=== PATIENT | male | born 1950 | race Caucasian/White ===

== ENCOUNTER → 2018-04-18 11:23 | Outpatient (CLI) | payer MEDICARE, OTHER, SELFPAY ==
[2015-04-20 06:42] VITALS: BMI 33.5
--- NOTE | 2018-04-18 11:34 | RAD_ITS ---
STUDY: X-RAY CHEST REASON FOR EXAM: Male, 68 years old. 10 day history of cough and chest tightness. TECHNIQUE: PA and lateral views of the chest. COMPARISON: None. FINDINGS: Minimal increased markings at the lung bases suggestive of mild scarring. There is no demonstrated pleural abnormality. Normal size heart. Normal mediastinum and donato. Normal visualized pulmonary arteries. There is atherosclerotic calcification of the aortic arch with tortuosity. There are diffuse degenerative changes of the visualized thoracic spine. Normal visualized ribs, clavicles, and shoulders. There is no demonstrated abnormality of the visualized soft tissue structures of the upper abdomen. RAD/Chest PA and Lateral IMPRESSION: Mild degree of increase in markings at the lung bases suggestive of mild scarring. Electronically Signed: Amarjit Wyman MD at 10:13 EST Tel [phone], Service support ,
--- OUTSIDE RECORDS SUMMARY | 2018-06-23 03:06 | XMS RPT_ITS ---
:1950 Author Organization OHIP Support Name Relationship Address Phone SYMONE MCWILLIAMS Unavailable [address] + [place] [address] SYMONE MCWILLIAMS Unavailable [address] + [place] [address] R Unavailable Unavailable Unavailable SYMONE MCWILLIAMS Unavailable [address] [facility] [address] + [place] [address] OJ SYMONE Unavailable [address] + [place] [address] OJ SYMONE Unavailable [address] + [place] [address] OJSYMONE Unavailable [address] + [place] [address] OJ SYMONE Unavailable [address] + [place] [address] OJSYMONE Unavailable [address] + [place] [address] SYMONE MCWILLIAMS Unavailable [address] + [place] [address] OJ SYMONE Unavailable [address] + [place] [address] OJ SMYONE Unavailable [address] + [place] [address] OJ SYMONE Unavailable [address] + [place] [address] OJ SYMONE Unavailable [address] + [place] [address] SYMONE MCWILLIAMS Unavailable [address] + [place] [address] SYMONE MCWILLIAMS Unavailable [address] + [place] [address] SYMONE MCWILLIAMS Unavailable [address] + [place] [address] SYMONE MCWILLIAMS Unavailable [address] + [place] [address] SYMONE MCWILLIAMS Unavailable [address] + [place] [address] VENUS MCWILLIAMSAN Unavailable [address] + [place] [address] SYMONE MCWILLIAMS Unavailable [address] + [place] [address] SYMONE MCWILLIAMS Unavailable [address] + [place] [address] Care Team Providers Name Role Phone ROSAURA AYALA MD Attending Unavailable ROSAURA AYALA MD Primary Care Unavailable ROSAURA AYALA MD Attending Unavailable ROSAURA AYALA MD Primary Care Unavailable PERFECTO DEVINE MD, JR. Attending Unavailable ROSAURA AYALA MD Primary Care Unavailable CJ CHIN MD Attending Unavailable ROSAURA AYALA MD Primary Care Unavailable CJ CHIN MD Attending Unavailable ROSAURA AYALA MD Primary Care Unavailable CJ CHIN MD Attending Unavailable CJ CHIN MD Primary Care Unavailable HAYDEN MOYER MD Attending Unavailable CJ CHIN MD Primary Care Unavailable PERFECTO DEVINE MD, JR. Attending Unavailable PERFECTO DEVINE MD, JR. Referring Unavailable CJ CHIN MD Primary Care Unavailable PERFECTO DEVINE MD, JR. Attending Unavailable CJ CHIN MD Primary Care Unavailable CJ CHIN MD Attending Unavailable CJ CHIN MD Primary Care Unavailable Bandar De Jesus Attending Unavailable Bandar De Jesus Referring Unavailable CJ CHIN Primary Care Unavailable PROBLEMS PROBLEMS DATE TYPE CONDITION / CODE ATTENDING STATUS SOURCE 11/14/2017 Admitting Type 1 diabetes ELSY BAHENA, Active [facility] Diagnosis mellitus with other [facility] specified Repository complication / E10.69(ICD-10) 07/10/2017 Admitting Encounter for LUCY BAHENA, Active [facility] Diagnosis screening for other [facility] viral diseases / Repository Z11.59(ICD-10) 07/10/2017 Admitting Mixed hyperlipidemia LUCY BAHENA, Active [facility] Diagnosis / E78.2(ICD-10) [facility] Repository 07/10/2017 Admitting Essential (primary) LUCY BAHENA, Active [facility] Diagnosis hypertension / [facility] I10(ICD-10) Repository 07/10/2017 Admitting Type 2 diabetes LUCY BAHENA, Active [facility] Diagnosis mellitus without [facility] complications / Repository E11.9(ICD-10) PROCEDURES PROCEDURES No Procedure Records FoundRESULTS RESULTS VL CAROTID BILATERAL Observed: 04/26/2018 Status: F Source: [facility] DUPLEX 8:39 AM [facility] REPOSITORY ORIGINAL Carotid duplex examination using B-mode, color flow and spectral Doppler CLINICAL STATEMENT: syncope. COMPARISON: None FINDINGS: RIGHT SIDE: There is calcified atherosclerosis at the carotid bifurcation. Maximum morphologic ICA stenosis is 40 %. CCA PSV: 98 cm/s ICA PSV: 104 cm/s ICA/CCA ratio: 1.06 ECA PSV: 164 cm/s Vertebral artery: Antegrade Subclavian artery: Antegrade LEFT SIDE: There is calcified atherosclerosis at the carotid bifurcation. Maximum morphologic ICA stenosis is 23%. CCA PSV: 96 cm/s ICA PSV: 84 cm/s ICA/CCA ratio: 0.87 ECA PSV: 176 cm/s Vertebral artery: Antegrade Subclavian artery: Antegrade IMPRESSION: Moderate bilateral carotid atherosclerotic disease. There is no ICA stenosis of greater than 50% on either side. I have personally reviewed the images of this examination and agree with the resident's findings and interpretation. Interpreted By: Timothy Tinoco MD Preliminary Report By: Alma Scott DO Electronically Signed By: Timothy Tinoco MD Dictated Date: 04/26/2018 4:45:31 PM Prelim Date: 04/26/2018 4:51:12 PM Sign Date: 04/26/2018 5:05:15 PM CHEST PA AND LATERAL Observed: 04/18/2018 Status: F Source: LISA 11:34 AM [facility] REPOSITORY [facility] Imaging Services [address] [place] [address] Chest PA and Lateral MR#: [id number] Acct: [id number] Name: DONNA MCWILLIAMS Rep #: [id number] : 1950 M 68 From: Amarjit Wyman MD PCP: Cj Chin MD Status: REG CLI Study: Chest PA and Lateral Date of Exam: 04/18/18 Exam# [id number] Ordering Dr: Bandar De Jesus MD STUDY: X-RAY CHEST REASON FOR EXAM: Male, 68 years old. 10 day history of cough and chest tightness. TECHNIQUE: PA and lateral views of the chest. COMPARISON: None. FINDINGS: Minimal increased markings at the lung bases suggestive of mild scarring. There is no demonstrated pleural abnormality. Normal size heart. Normal mediastinum and donato. Normal visualized pulmonary arteries. There is atherosclerotic calcification of the aortic arch with tortuosity. There are diffuse degenerative changes of the visualized thoracic spine. Normal visualized ribs, clavicles, and shoulders. There is no demonstrated abnormality of the visualized soft tissue structures of the upper abdomen. RAD/Chest PA and Lateral IMPRESSION: Mild degree of increase in markings at the lung bases suggestive of mild scarring. Electronically Signed: Amarjit Wyman MD at 10:13 EST Tel [phone], Service support , CC: Valdez De Jesus MD; Cj Chin MD Education General Manager: Signed Observed: 04/18/2018 Status: F Source: [place] CULTURE, THROAT 11:15 AM [facility] REPOSITORY Culture, Throat Normal throat lucas isolated. No beta-hemolytic streptococcus isolated. Performed By: #### M100.1000 #### [facility] [place], [address] XR SPINE CERVICAL W/ Observed: 04/10/2018 Status: F Source: [facility] FLEXT/EXT 6 + VIEWS 8:38 AM [facility] REPOSIT[facility] ORIGINAL Cervical spine 8 views including lateral flexion and extension views HISTORY: Neck pain COMPARISON: None The neutral lateral view shows normal vertebral body height and alignment. Flexion and extension views show no abnormal motion. There is mild to moderate degenerative disc disease inferiorly with promin ent anterior annular calcification and spurring at the lower cervical levels. Mild facet degenerative changes are present. There is mild narrowing of the RIGHT C5-C6 neural foramen. The C1-C2 relationsh ip and the prevertebral soft tissues are unremarkable. IMPRESSION: Inferior degenerative changes, no acute finding. Interpreted By: Magen Segura MD Preliminary Report By: Magen Segura MD Electronically Signed By: Magen Segura MD Dictated Date: 04/10/2018 9:09:33 AM Prelim Date: 04/10/2018 9:09:33 AM Sign Date: 04/10/2018 9:10:22 AM PSA Collected: 04/09/2018 Status: F Source: [facility] 2:15 PM [facility] REPOSITORY TYPE CODE TESTS RESULT OUT OF REFERENCE UNITS RANGE LAB PSA(LOINC) 0.00-4.00 ng/mL Prostate 2.02 Specific Antigen Performed By: #### PSA #### [place] [address] CMP Collected: 02/06/2018 Status: F Source: [facility] 9:35 AM [facility] REPOSITORY TYPE CODE TESTS RESULT OUT OF REFERENCE UNITS RANGE LAB GLU(LOINC) 80-115 mg/dL Glucose Level 112 LAB NA(LOINC) 136-145 mmol/L Sodium Level 141 LAB K(LOINC) 3.5-5.1 mmol/L Potassium Level 4.7 LAB CL(LOINC) 98-107 mmol/L Chloride 103 LAB CO2(LOINC) 23-31 mmol/L CO2 25 LAB EBAL(LOINC mEq/L ) Electrolyte Balance 13.0 LAB BUN(LOINC) 7-18 mg/dL BUN High 24 LAB CRE(LOINC) 0.70-1.30 mg/dL Creatinine Lvl (s) 0.86 LAB BC(LOINC) 7-27 ratio High BUN/Creatinine 28 Ratio LAB CA(LOINC) 8.4-10.2 mg/dL Calcium Lvl 9.1 LAB PROT(LOINC 6.4-8.2 G/dL ) Total Protein 6.7 LAB ALB(LOINC) 3.4-4.8 G/dL Albumin Level 3.9 LAB GLB(LOINC) G/dL Globulin 2.8 LAB AG(LOINC) 1.1-2.5 ratio A/G Ratio 1.4 LAB BILT(LOINC 0.2-1.0 mg/dL ) Bili Total 0.4 LAB AP(LOINC) 40-135 U/L Alk Phos 97 LAB AST(LOINC) 10-40 U/L AST/SGOT 33 LAB ALT(LOINC) 10-35 U/L ALT/SGPT High 61 Performed By: #### CMP, LIPID, GFR #### [place] [address] LIPID Collected: 02/06/2018 Status: F Source: [employer] 9:35 AM [facility] REPOSITORY TYPE CODE TESTS RESULT OUT OF REFERENCE UNITS RANGE LAB CHOL(LOINC 0-200 mg/dL ) Cholesterol 176 Result Comment: Cholesterol Reference Interval: Less than 200 Desirable 200-239 Borderline high risk 240 and above High risk LAB TRIG(LOINC) 0-150 mg/dL Triglycerides High 259 Result Comment: Triglyceride Reference Interval: Less than 150 Normal 150-199 Borderline high risk 200-499 High risk 500 or higher Very high risk LAB HD(LOINC) 40-60 mg/dL HDL Low Cholesterol 36 LAB LDL(LOINC) 0-130 mg/dL LDL Cholesterol 88 Performed By: #### CMP, LIPID, GFR #### [place] [address] .GFR Collected: 02/06/2018 Status: F Source: [employer] 9:35 AM [facility] REPOSITORY TYPE CODE TESTS RESULT OUT OF REFERENCE UNITS RANGE LAB GFRAA(LOINC ml/min/1.73 ) sqm GFR 108 [place] Result Comment: GFR Population mean for , Non- Americans Ages 20-29 = 116 mL/min/1.73 sq.m. Ages 30-39 = 107 mL/min/1.73 sq.m. Ages 40-49 = 99 mL/min/1.73 sq.m. Ages 50-59 = 93 mL/min/1.73 sq.m. Ages 60-69 = 85 mL/min/1.73 sq.m. Ages 70+ = 75 mL/min/1.73 sq.m. Chronic Kidney Disease: Less than 60 mL/min/1.73 square meters End Stage Renal Disease: Less than 15 mL/min/1.73 square meters LAB GFRNO(LOINC) ml/min/1.73sqm GFR Non- 89 Result Comment: GFR Population mean for , Non- Americans Ages 20-29 = 116 mL/min/1.73 sq.m. Ages 30-39 = 107 mL/min/1.73 sq.m. Ages 40-49 = 99 mL/min/1.73 sq.m. Ages 50-59 = 93 mL/min/1.73 sq.m. Ages 60-69 = 85 mL/min/1.73 sq.m. Ages 70+ = 75 mL/min/1.73 sq.m. Chronic Kidney Disease: Less than 60 mL/min/1.73 square meters End Stage Renal Disease: Less than 15 mL/min/1.73 square meters Performed By: #### CMP, LIPID, GFR #### [place] [address] CMP Collected: 11/19/2017 Status: F Source: [facility] 11:05 AM [facility] REPOS[facility] TYPE CODE TESTS RESULT OUT OF REFERENCE UNITS RANGE LAB GLU(LOINC) 80-115 mg/dL Glucose High Level 143 LAB NA(LOINC) 136-145 mmol/L Sodium Level 141 LAB K(LOINC) 3.5-5.1 mmol/L Potassium Level 4.6 LAB CL(LOINC) 98-107 mmol/L Chloride 104 LAB CO2(LOINC) 23-31 mmol/L CO2 29 LAB EBAL(LOINC mEq/L ) Electrolyte Balance 8.0 LAB BUN(LOINC) 7-18 mg/dL BUN High 20 LAB CRE(LOINC) 0.70-1.30 mg/dL Creatinine Lvl (s) 0.95 LAB BC(LOINC) 7-27 ratio BUN/Creatinine 21 Ratio LAB CA(LOINC) 8.4-10.2 mg/dL Calcium Lvl 9.7 LAB PROT(LOINC 6.4-8.2 G/dL ) Total Protein 7.1 LAB ALB(LOINC) 3.4-4.8 G/dL Albumin Level 4.0 LAB GLB(LOINC) G/dL Globulin 3.1 LAB AG(LOINC) 1.1-2.5 ratio A/G Ratio 1.3 LAB BILT(LOINC 0.2-1.0 mg/dL ) Bili Total 0.4 LAB AP(LOINC) 40-135 U/L Alk Phos 116 LAB AST(LOINC) 10-40 U/L AST/SGOT 30 LAB ALT(LOINC) 10-35 U/L ALT/SGPT High 72 Performed By: #### CMP, GFR #### [address] [address] .GFR Collected: 11/19/2017 Status: F Source: [facility] 11:05 AM [facility] REPOSITORY TYPE CODE TESTS RESULT OUT OF REFERENCE UNITS RANGE LAB GFRAA(LOINC ml/min/1.73 ) sqm GFR 96 [place] Result Comment: GFR Population mean for , Non- Americans Ages 20-29 = 116 mL/min/1.73 sq.m. Ages 30-39 = 107 mL/min/1.73 sq.m. Ages 40-49 = 99 mL/min/1.73 sq.m. Ages 50-59 = 93 mL/min/1.73 sq.m. Ages 60-69 = 85 mL/min/1.73 sq.m. Ages 70+ = 75 mL/min/1.73 sq.m. Chronic Kidney Disease: Less than 60 mL/min/1.73 square meters End Stage Renal Disease: Less than 15 mL/min/1.73 square meters LAB GFRNO(LOINC) ml/min/1.73sqm GFR Non- 79 Result Comment: GFR Population mean for , Non- Americans Ages 20-29 = 116 mL/min/1.73 sq.m. Ages 30-39 = 107 mL/min/1.73 sq.m. Ages 40-49 = 99 mL/min/1.73 sq.m. Ages 50-59 = 93 mL/min/1.73 sq.m. Ages 60-69 = 85 mL/min/1.73 sq.m. Ages 70+ = 75 mL/min/1.73 sq.m. Chronic Kidney Disease: Less than 60 mL/min/1.73 square meters End Stage Renal Disease: Less than 15 mL/min/1.73 square meters Performed By: #### CMP, GFR #### [address] [address] LIPID Collected: 11/14/2017 Status: F Source: [facility] 8:11 AM [facility] REPOSITORY TYPE CODE TESTS RESULT OUT OF REFERENCE UNITS RANGE LAB CHOL(LOINC 0-200 mg/dL ) Cholesterol High 207 Result Comment: Cholesterol Reference Interval: Less than 200 Desirable 200-239 Borderline high risk 240 and above High risk LAB TRIG(LOINC) 0-150 mg/dL Triglycerides High 303 Result Comment: Triglyceride Reference Interval: Less than 150 Normal 150-199 Borderline high risk 200-499 High risk 500 or higher Very high risk LAB HD(LOINC) 40-60 mg/dL HDL Low Cholesterol 36 LAB LDL(LOINC) 0-130 mg/dL LDL Cholesterol 110 Performed By: #### LIPID #### [facility] [address] [place] [address] BUN Collected: 08/22/2017 Status: F Source: [employer] [facility] 11:01 AM [facility] REPOSITORY TYPE CODE TESTS RESULT OUT OF RANGE REFERENCE UNITS LAB BUN(LOINC) 7.0-18.0 mg/dL High BUN 19.7 Performed By: #### BUN, CRE, GFR #### [address] [address] CRE Collected: 08/22/2017 Status: F Source: [facility] 11:01 AM [facility] REPOSITORY TYPE CODE TESTS RESULT OUT OF REFERENCE UNITS RANGE LAB CRE(LOINC) 0.6-1.2 mg/dL Creatinine Lvl 0.8 (s) Performed By: #### BUN, CRE, GFR #### [address] [address] .GFR Collected: 08/22/2017 Status: F Source: [facility] 11:01 AM [facility] REPOSITORY TYPE CODE TESTS RESULT OUT OF REFERENCE UNITS RANGE LAB GFRAA(LOINC ml/min/1.73 ) sqm GFR 124 [place] Result Comment: GFR Population mean for , Non- Americans Ages 20-29 = 116 mL/min/1.73 sq.m. Ages 30-39 = 107 mL/min/1.73 sq.m. Ages 40-49 = 99 mL/min/1.73 sq.m. Ages 50-59 = 93 mL/min/1.73 sq.m. Ages 60-69 = 85 mL/min/1.73 sq.m. Ages 70+ = 75 mL/min/1.73 sq.m. Chronic Kidney Disease: Less than 60 mL/min/1.73 square meters End Stage Renal Disease: Less than 15 mL/min/1.73 square meters LAB GFRNO(LOINC) ml/min/1.73sqm GFR Non- >60 Result Comment: GFR Population mean for , Non- Americans Ages 20-29 = 116 mL/min/1.73 sq.m. Ages 30-39 = 107 mL/min/1.73 sq.m. Ages 40-49 = 99 mL/min/1.73 sq.m. Ages 50-59 = 93 mL/min/1.73 sq.m. Ages 60-69 = 85 mL/min/1.73 sq.m. Ages 70+ = 75 mL/min/1.73 sq.m. Chronic Kidney Disease: Less than 60 mL/min/1.73 square meters End Stage Renal Disease: Less than 15 mL/min/1.73 square meters Performed By: #### BUN, CRE, GFR #### [address] [address] LIPID Collected: 07/10/2017 Status: F Source: [facility] 11:00 AM [facility] REPOS[facility] TYPE CODE TESTS RESULT OUT OF REFERENCE UNITS RANGE LAB CHOL(LOINC 131-200 mg/dL ) Cholesterol High 204 Result Comment: Cholesterol Reference Interval: Less than 200 Desirable 200-239 Borderline high risk 240 and above High risk LAB TRIG(LOINC) 40-150 mg/dL Triglycerides High 355 Result Comment: Triglyceride Reference Interval: Less than 150 Normal 150-199 Borderline high risk 200-499 High risk 500 or higher Very high risk LAB HD(LOINC) 35-90 mg/dL HDL Cholesterol 38 Result Comment: HDL Reference Interval: Less than 40 Low - high risk 60 or above Optimal/lowers risk LAB LDL(LOINC) 0-130 mg/dL LDL Cholesterol 95 Result Comment: LDL is a calculated result and requires a 12-hr fast. LDL Reference Interval: Less than 100 Optimal 100-129 Near or above optimal 130-159 Borderline high risk 160-189 High risk 190 and above Very high risk Performed By: #### LIPID, CMP, GFR #### [place] [address] [address] #### HCV1 #### [address] [address] CMP Collected: 07/10/2017 Status: F Source: [facility] 11:00 AM [facility] REPOSITORY TYPE CODE TESTS RESULT OUT OF REFERENCE UNITS RANGE LAB 1547-9 80-115 mg/dL GLUCOSE 111 LAB NA(LOINC) 136-146 mEq/L Sodium Level 140 LAB K(LOINC) 3.5-5.1 mEq/L Potassium Level 4.5 LAB CL(LOINC) 98-107 mEq/L Chloride 101 LAB CO2(LOINC) 23-31 mEq/L CO2 26 LAB EBAL(LOINC mEq/L ) Electrolyte Balance 13.0 LAB BUN(LOINC) 7.0-18.0 mg/dL BUN High 24.5 LAB CRE(LOINC) 0.6-1.2 mg/dL Creatinine Lvl (s) 0.9 LAB BC(LOINC) 7-27 ratio BUN/Creatinine 27 Ratio LAB CA(LOINC) 8.4-10.2 mg/dL Calcium Lvl 9.4 LAB PROT(LOINC 6.0-8.3 G/dL ) Total Protein 6.9 LAB ALB(LOINC) 3.4-4.8 G/dL Albumin Level 4.4 LAB GLB(LOINC) G/dL Globulin 2.5 LAB AG(LOINC) 1.1-2.5 ratio A/G Ratio 1.8 LAB BILT(LOINC 0.2-1.0 mg/dL ) Bili Total 0.5 LAB AP(LOINC) 40-135 IU/L Alk Phos 93 LAB AST(LOINC) 10-40 IU/L AST/SGOT 35 LAB ALT(LOINC) 10-35 IU/L ALT/SGPT High 53 Performed By: #### LIPID, CMP, GFR #### [address] [address] #### HCV1 #### [address] [address] .GFR Collected: 07/10/2017 Status: F Source: [facility] 11:00 AM [facility] REPOSITORY TYPE CODE TESTS RESULT OUT OF REFERENCE UNITS RANGE LAB GFRAA(LOINC ml/min/1.73 ) sqm GFR 98 [place] Result Comment: GFR Population mean for , Non- Americans Ages 20-29 = 116 mL/min/1.73 sq.m. Ages 30-39 = 107 mL/min/1.73 sq.m. Ages 40-49 = 99 mL/min/1.73 sq.m. Ages 50-59 = 93 mL/min/1.73 sq.m. Ages 60-69 = 85 mL/min/1.73 sq.m. Ages 70+ = 75 mL/min/1.73 sq.m. Chronic Kidney Disease: Less than 60 mL/min/1.73 square meters End Stage Renal Disease: Less than 15 mL/min/1.73 square meters LAB GFRNO(LOINC) ml/min/1.73sqm GFR Non- >60 Result Comment: GFR Population mean for , Non- Americans Ages 20-29 = 116 mL/min/1.73 sq.m. Ages 30-39 = 107 mL/min/1.73 sq.m. Ages 40-49 = 99 mL/min/1.73 sq.m. Ages 50-59 = 93 mL/min/1.73 sq.m. Ages 60-69 = 85 mL/min/1.73 sq.m. Ages 70+ = 75 mL/min/1.73 sq.m. Chronic Kidney Disease: Less than 60 mL/min/1.73 square meters End Stage Renal Disease: Less than 15 mL/min/1.73 square meters Performed By: #### LIPID, CMP, GFR #### [address] [address] #### HCV1 #### [address] [address] HCV Collected: 07/10/2017 Status: F Source: [facility] 11:00 AM [facility] REPOS[facility]ORY TYPE CODE TESTS RESULT OUT OF REFERENCE UNITS RANGE LAB HCV(LOINC) Negative Negative Hep C Ab LAB HCV1(LOINC ) No serological Hep C evidence of Ab Int Hepatitis C infection, although levels of anti-HCV may be undetectable in early infection. Performed By: #### LIPID, CMP, GFR #### [address] [address] #### HCV1 #### [facility] [address] [place] [address] XR TOES GREAT 3 Observed: 06/04/2017 Status: F Source: DAYNE SEPULV[facility]A VIEWS LEFT 9:48 AM [facility] REPOSITORY ORIGINAL XR TOES GREAT 3 VIEWS LEFT, 06/04/2017 CLINICAL STATEMENT: PAIN COMPARISON: None FINDINGS: Lateral view shows a fracture of the proximal corner of the distal phalanx along its dorsal surface, acuity uncertain.. There is narrowing of the metatarsophalangeal and interphalangeal joints . There is spurring at the margins of the metatarsophalangeal joint. There is no varus or valgus deformity. There is no radiopaque foreign body. IMPRESSION: Degenerative change as described. Fracture of the proximal corner of the dorsal surface of the distal phalanx of the left great toe of uncertain acuity. Clinical correlation will be required. Interpreted By: Perfecto Liu MD Preliminary Report By: Perfecto Liu MD Electronically Signed By: Perfecto Liu MD Dictated Date: 06/04/2017 10:05:59 AM Prelim Date: 06/04/2017 10:05:59 AM Sign Date: 06/04/2017 10:08:14 AM ALLERGIES ALLERGIES DATE TYPE / CODE NAME / CODE REACTION SEVERITY SOURCE 04/15/2015 Drug Sulfa (Sulfonamide Nausea/Vom/Leah SV Lisa Allergy/416 Antibiotics)/[id number] [facility] [address]([facility] 04/15/2015 Drug erythromycin Nausea/Vom/Leah SV [place] Allergy/416 base/[id number](RXN [facility] 640674([facility] ORRust ED CT) Repository ENCOUNTERS ENCOUNTERS ADMIT/DISCHARGE ACCOUNT NUMBER ADMITTING ENCOUNTER LOCATION SOURCE CLASS 04/26/2018/04/26/19 [id number] Ambulatory BBuilding: Dayne D [facility] Repository 04/18/2018 [id number] Ambulatory [facility] ding:RAD Repository 04/11/2018 [id number] Ambulatory BBuilding:MAGY Dayne [facility] Repository 04/10/2018/04/10/19 [id number] Ambulatory BBuilding: [facility]ne [facility] Repository 04/09/2018/04/09/19 [id number] [facility] Repository 02/06/2018 [id number] Ambulatory BBuilding:DR [facility] Repository 11/19/2017/11/24/19 [id number] Ambulatory DAYNE Lundman [facility] ding:DROP Foundation Repository 11/14/2017/11/19/19 [id number] Ambulatory DAYNE Dayne [facility] ding:DROP [facility] Repository 08/22/2017/08/23/19 [id number] Ambulatory DAYNE [address] ding:OLAB [facility] Repository 07/10/2017/07/15/19 [id number] Ambulatory DAYNE Lundman [facility] ding:DROP [facility] Repository 06/04/2017/06/05/19 [id number] Ambulatory [address] ding:RAD [facility] Repository PAYERS PAYERS ENCOUNTER GUARANTOR PAYER SUBSCRIBER SOURCE 04/26/2018 DAV Primary [facility] REYNOLDSDOB: Insurance:MEDICARE REYNOLDSDOB: [facility] [id number] PART B [employer] [id number] Repository [address] Number: [address] [facility] [place], [place] [id number] [place], [place] [address]Zhc: ([phone]) Date:2018-04-26 089[address]Rtm: (NM) [id number] [phone] Name:PCGS ()Tel: (000) Administrators LLCPO 000-0000 (WP) [address] [place] [address]NY: 04/26/2018 Secondary [facility] Insurance:MEDICAL REYNOLDSDOB: [facility] MUTUAL 6018Policy [id number] Repository Number: [address] [facility] [id number] [place], [place] Date:2018-04-2622610Anz: [phone] [id number] [phone] Name:BPO BOX ()Tel: (000) [address], [place] 000-0000 (WP) [address]EQ: 04/18/2018 DONNA Sanchez Primary DONNA Gonzalez [id number] Insurance:MEDICARE REYNOLDSDOB: [facility] PART A [facility] [id number] Number: Repository [id number]: [phone] [id number] [phone] (HP) Date:2018-04-18 04/18/2018 Secondary DONNA Gonzalez Insurance:MEDICAL REYNOLDSDOB: [facility] [id number] Number: Repository [id number] Date:[id number] [address] [place] [id number]: 04/18/2018 Tertiary NOT JARRED Gonzalez Insurance:SELF PAY [facility] Number: Effective Repository Date:2018-04-18 04/11/[address] [facility] Primary DONNA Sanchez [facility] REYNOLDSDOB: Insurance:MEDICARE REYNOLDSDOB: [facility] [id number] PART B [facility] [id number] Repository [facility] Number: [address] [facility] [place], [place] [id number] [place], [place] [address]Rpt: (330) Date:2018-04-10 542[address]Akd: () [id number] Name:[facility] ()Tel: (000 Administrators LLCPO 000-0000 (WP) [address] [place] [address]EM: 04/11/2018 Secondary DONNA [facility] Insurance:MEDICAL REYNOLDSDOB: [address] [id number] Repository Number: [address] [facility] [id number] [place], [place] Date:2018-04-10 [address]Sgr: [phone] [id number] [phone] Name:BPO BOX ()Tel: (000) [address], [place] 000[address] (WP) [address]JY: 04/10/[address] [facility] REYNOLDSDOB: Insurance:MEDICARE REYNOLDSDOB: [facility] [id number] PART B [employer] [id number] Repository [address] Number: [address] [id number] [place], [place] [address]Uhn: (330) Date:2018-04-10Tel: (HP) [id number] [phone] Name:[facility] ()Tel: (000) Administrators LLCPO 000-0000 (WP) [address] [address]Kqlxslvdj, [place] [address]DG: 04/10/2018 [facility] Health Insurance:MEDICAL REYNOLDSDOB: [place] [id number] [id number] Repository Number: [address] [id number] [place] Date:2018-04-10Tel: (330 [id number] [phone] Name:BPO JATINDER ()Tel: (000) [address], [place] 000-0000 (WP) [address]FK: 04/09/2018 [facility] REYNOLDSDOB: Insurance:MEDICARE REYNOLDSDOB: [facility] [id number] [facility] [id number] Repository [address] Number: [address] [id number] [place], [place] [address]Jpm: (330) Date:2018-04-09Tel: (HP) [id number] [phone] Name:[facility] ()Tel: (000) Administrators LLCPO 000-0000 (WP) [address] [place] [address]MZ: 04/09/2018 [facility] Health Insurance:MEDICAL REYNOLDSDOB: [place] [id number] [id number] Repository Number: [address] [id number] [place] Date:2018-04-0970678Dnt: (330 [id number] [phone] Name:BPO BOX (HP)Tel: 000 [address], [place] 000-0000 (WP) [address]AX: 02/06/2018 [facility] REYNOLDSDOB: Insurance:MEDICARE REYNOLDSDOB: [facility] PART BPolicy Number: [id number] [address] [id number] 7 [facility] [place], [place] Date:2018-02-06 - [place], [place] [address]Lyi: [phone] [id number] [phone]: (HP) Name:[place] [id number] Administrators LLCPO (HP)Tel: (000) [address] [address]Hhukppwga, 000-0000 (WP) [place] [address]PP: 02/06/2018 [facility] Insurance:MEDICAL REYNOLDSDOB: [place] [id number] [id number] Repository Number: 7 [facility] [id number] [place] Date:2018-02-06 [address]Wdj: [phone] [id number] [phone] Name:BPO BOX (HP)Tel: (000) [place], [place] 000-0000 (WP) [address]YG: 11/19/2017 [facility] REYNOLDSDOB: Insurance:MEDICARE REYNOLDSDOB: [facility] PART BPolicy Number: [id number] Repository [facility] [id number] 7 [facility] [place], [place] Date:2017-11-19 [place], [place] [address]Unn: [phone] [id number] [id number]: (HP) Name:[facility] [phone] Administrators LLCPO (HP)Tel: (000) [address] [address]Qzniuwtjp, 000-0000 (WP) [place] [address]AS: 11/19/2017 [facility] Health Insurance:MEDICAL REYNOLDSDOB: [place] [id number] [id number] Repository Number: [address] [id number] [place], [place] Date:2017-11-19 [address]Uve: [phone] [id number] [phone] Name:BPO BOX (HP)Tel: (000 [address], [place] 000-[address] (WP) [address]ZX: 11/14/2017 [facility] REYNOLDSDOB: Insurance:MEDICARE REYNOLDSDOB: [facility] PART BPolicy Number: [id number] [id number] 7 [facility] [place], [place] Date:2017-11-14 - [place], [place] [address]Qyd: [phone] [id number] [phone]: (HP) Name:[place] [phone] Administrators LLCPO (HP)Tel: (000) [address] [address]Fapfinlmk, 000-0000 (WP) [place] [id number]: 11/14/2017 [facility] Insurance:MEDICAL REYNOLDSDOB: [facility] 6018[facility] [id number] Repository Number: [address] [id number] [place] Date:2017-11-14 [address]Wfn: [phone] [id number] [phone] Name:BPO BOX (HP)Tel: (000) [address], [place] 000-[address] (WP) [address]RA: 08/22/2017 [facility] REYNOLDSDOB: Insurance:MEDICARE REYNOLDSDOB: [facility] [id number] PART BPolicy Number: [id number] Repository [facility] [place] [id number] 7 [facility] [place], [place] Date:2017-08-22 [place], [place] [address]Nqn: [phone] [id number] [phone]: (HP) Name:[facility] [phone] Administrators LLCPO (HP)Tel: (000) [address] [address]Vqprnzbuf, 000-0000 (WP) [place] [address]JJ: 08/22/2017 [facility] Health Insurance:MEDICAL REYNOLDSDOB: [facility] 6018[facility] [id number] Repository Number: [address] [id number] [place] Date:2017-08-22 [address]Lcm: [phone] [id number] [phone] Name:BPO BOX (HP)Tel: (000 [address], [place] 000-0000 (WP) [address]FO: 07/10/2017 [facility] REYNOLDSDOB: Insurance:MEDICARE REYNOLDSDOB: [facility] PART BPolicy Number: [id number] [address] [id number] 7 [facility] [place], [place] Date:2017-07-10 [place], [place] [address]Mgt: [phone] [id number] [phone]: () Name:[facility] [phone] Administrators LLCPO (HP)Tel: (000) [address] [address]Bqtmjelin, 000-0000 (WP) [place] [address]ND: 07/10/2017 [facility] Insurance:MEDICAL REYNOLDSDOB: [facility] 6018[facility] [id number] Repository Number: [address] [id number] [place] Date:2017-07-10 [address]Kqd: [phone] [id number] [phone] Name:BPO BOX (HP)Tel: (000 [address], [place] 000-0000 (WP) [address]CJ: 06/04/2017 [facility] REYNOLDSDOB: Insurance:MEDICARE REYNOLDSDOB: [facility] PART BPolicy Number: [id number] [id number] [address] [place], [place] Date:2017-06-04 [place], [place] [address]Hwr: [phone] [id number] [phone]: () Name:[facility] [phone] Administrators LLCPO ()Tel: (702) [address] [address]Yrmhyoyjm, 000-[address] (WP) [place] [address]OI: 06/04/2017 [facility] Insurance:MEDICAL REYNOLDSDOB: [facility] 6018Policy [id number] Repository Number: [address] [id number] [place], [place] Date:2017-06-04 [address]Uzt: [phone] [id number] [phone] Name:KYLE TOBIAS ()Tel: (486) [address], [place] 000-[address] (WP) [address]HM:
== END ==
PROVIDERS: Family Provider Family Medicine; PCP Family Medicine; Referring Provider Otolaryngology; Visit Provider Otolaryngology
DX: R05 Cough (principal); J02.9 Acute pharyngitis, unspecified
CPT/HCPCS: 71046; 87070

== ENCOUNTER → 2018-07-03 15:36 | Outpatient (CLI) | payer MEDICARE, OTHER, SELFPAY ==
[2015-04-20 06:42] VITALS: BMI 33.5
== END ==
PROVIDERS: Family Provider Family Medicine; PCP Family Medicine; Referring Provider Otolaryngology Otolaryngology/Facial Plastic Surgery; Visit Provider Otolaryngology Otolaryngology/Facial Plastic Surgery
DX: H92.12 Otorrhea, left ear (principal)
CPT/HCPCS: 87070; 87077; 87186; 87205

== ENCOUNTER → 2020-06-02 | Outpatient (CLI) | payer MEDICARE, OTHER, SELFPAY | END | disposition home or self-care (01) | LOC: LABSPEC 15:13 | PROVIDERS: PCP Family Medicine; Referring Provider Otolaryngology; Visit Provider Otolaryngology | DX: H92.10 Otorrhea, unspecified ear (principal) | CPT/HCPCS: 87070; 87075; 87077; 87205 ==

== ENCOUNTER → 2020-12-17 | Outpatient (CLI) | payer MEDICARE, OTHER, SELFPAY | END | disposition home or self-care (01) | LOC: LABSPEC 16:44 | PROVIDERS: PCP Family Medicine; Referring Provider Otolaryngology; Visit Provider Otolaryngology | DX: J02.9 Acute pharyngitis, unspecified (principal) | CPT/HCPCS: 87070; 87077 ==